=== PATIENT | female | born 1975 ===

== ENCOUNTER 2024-11-14 11:15 | Inpatient (IN) | payer OTHER ==
[~2024-11-14] VITALS: Ht 167.6 cm; Wt 77.1 kg
[2024-11-14] MEDS ORDERED: AMLODIPINE-OLM1 EACH (14:10)
[2024-11-14] MEDS ORDERED: VALSARTAN80 MG (14:10)
[2024-11-14 14:16] VITALS: BP 132/82
[2024-11-22] MEDS ORDERED: CEFOXITIN SODIUM 2,000 MG VIAL IV ONE (08:04)
[2024-11-22] MEDS ORDERED: POVIDONE-IODINE 118 ML BOTT TOP ONE (09:47)
[2024-11-22] MEDS ORDERED: VISTASEAL DUAL APPICATOR 1 EACH APPL TOP ONE (11:05)
[2024-11-22] MEDS ORDERED: SUGAMMADEX SODIUM 200 MG/2 ML VIAL IV ONE (11:05)
[2024-11-22] MEDS ORDERED: THROMBIN,HU/FIBRINOGEN/CALCIUM 4 ML SYRINGE TOP ONE (11:06)
[2024-11-22] MEDS ORDERED: MORPHINE SULFATE 4 MG/ML CARTRIDGE IV PRN (12:00)
[2024-11-22] MEDS ORDERED: ACETAMINOPHEN WITH CODEINE 1 UDTAB TABLET PO PRN (12:00)
[2024-11-22] MEDS ORDERED: RINGERS SOLUTION,LACTATED 1,000 ML IV SCH (12:00)
[2024-11-22] MEDS ORDERED: MORPHINE SULFATE 4 MG/ML VIAL IV ONE ×2 (13:00→16:05)
[2024-11-22] MEDS ORDERED: ENALAPRILAT DIHYDRATE 1.25 MG/ML VIAL IV PRN (15:30)
[2024-11-22] MEDS ORDERED: ONDANSETRON HCL 2 MG/ML VIAL IV SCH (17:00)
[2024-11-22] MEDS ORDERED: ONDANSETRON HCL 2 MG/ML VIAL ONE (17:13)
[2024-11-22 18:18] LABS: BASO % 0.2 % (0.1-1.2); EOS # 0.01 (0.04-0.54); EOS % 0.1 % (0.7-7.0); HEMATOCRIT 33.6 % (34.1-44.9); HEMOGLOBIN 10.8 g/dL (11.2-15.7); LYMPH # 1.68 (1.18-3.74); LYMPH % 16.7 % (19.3-53.1); MEAN CORPUSCULAR HEMOGLOBIN 26.7 pg (25.6-32.2); MONO # 0.51 (0.24-0.82); MONO % 5.1 % (4.7-12.5); NEUT # 7.83 (1.56-6.13); NEUT % 77.6 % (34.0-71.1); PLATELET COUNT 148 K/uL (163-369); RED BLOOD COUNT 4.04 M/uL (3.93-5.22); RED CELL DISTRIBUTION WIDTH 15.2 % (11.6-14.4)
[2024-11-22 18:56] VITALS: BP 114/72
[2024-11-22] MEDS ORDERED: FAMOTIDINE/PF 20 MG in 0.9 % SODIUM CHLORIDE 8 ML IV PUSH SCH (21:00)
[2024-11-23 01:08] VITALS: BP 99/62
[2024-11-23] MEDS ORDERED: tylenol #3 PO (08:28)
[2024-11-23] MEDS ORDERED: NAPR500T14 PO (08:28)
[2024-11-23] MEDS ORDERED: ACETAMINOPHEN WITH CODEINE 1 UDTAB TABLET PO STA (08:29)
[2024-11-23] MEDS ORDERED: FAMOTIDINE/PF 20 MG/2 ML VIAL ONE (08:45)
[2024-11-23] MEDS ORDERED: AMLODIPINE BESYLATE 5 MG TABLET PO SCH (09:00)
[2024-11-23 09:59] VITALS: BP 121/71
== END 2024-11-23 10:48 | disposition home or self-care (01) | DRG 743 ==
LOC: O/R 11-22 05:45 → SURH 11-22 10:30 → OB/GYN 11-22 15:39
PROVIDERS: ADMIT Obstetrics & Gynecology; ATTEND Obstetrics & Gynecology
PROC: 0UT7FZZ Resection of Bilateral Fallopian Tubes, Via Natural or Artificial Opening With Percutaneous Endoscopic Assistance (ICD-10-PCS; 2024-11-22)
PROC: 0UT2FZZ Resection of Bilateral Ovaries, Via Natural or Artificial Opening With Percutaneous Endoscopic Assistance (ICD-10-PCS; 2024-11-22)
PROC: 0JQC0ZZ Repair Pelvic Region Subcutaneous Tissue and Fascia, Open Approach (ICD-10-PCS; 2024-11-22)
PROC: 0USG4ZZ Reposition Vagina, Percutaneous Endoscopic Approach (ICD-10-PCS; 2024-11-22)
PROC: 0TJB8ZZ Inspection of Bladder, Via Natural or Artificial Opening Endoscopic (ICD-10-PCS; 2024-11-22)
PROC: 0UT9FZZ Resection of Uterus, Via Natural or Artificial Opening With Percutaneous Endoscopic Assistance (ICD-10-PCS; principal; 2024-11-22 10:30)
DX: D25.1 Intramural leiomyoma of uterus (principal); N80.03 Adenomyosis of the uterus; N83.11 Corpus luteum cyst of right ovary; N81.11 Cystocele, midline; N92.0 Excessive and frequent menstruation with regular cycle